=== PATIENT | male | born 1970 | race Caucasian/White ===

== ENCOUNTER 2021-01-30 23:45 | Emergency (ER) | payer OTHER, SELFPAY ==
[2021-01-31 01:08] VITALS: BP 146/83; PULSE 100; RESP 18; TEMP 36.6; O2SAT 100; BMI 30.7
== END 2021-01-31 01:41 | disposition left against medical advice (07) ==
PROVIDERS: Emergency Provider Emergency Medicine
DX: R21 Rash and other nonspecific skin eruption (principal); Z91.14 Patient's other noncompliance with medication regimen
CPT/HCPCS: 99281